=== PATIENT | male | born 1970 | race Caucasian/White ===

== ENCOUNTER 2017-05-08 12:40 | Observation (INO) | payer OTHER ==
[2017-05-08] MEDS ORDERED: Pantoprazole IV* 40 MG IV ONE ×2 (15:08→20:20)
[2017-05-08] MEDS ORDERED: NS 0.9% 1000 ML* 2,000 ML IV ONE (15:08)
[2017-05-08] MEDS ORDERED: Ondansetron INJ* 2 MG/ML VIAL IV ONE (15:08)
[2017-05-08 15:28] LABS: Hematocrit 39 % (42-52); Hemoglobin 13.5 g/dl (14.0-18.0); Mean Corpuscular HGB Conc 35 g/dl (31-36); Mean Corpuscular Hemoglobin 29 pg (27-31); Mean Corpuscular Volume 84 fL (80-94); Mean Platelet Volume 8 um3 (7.4-10.4); Red Blood Count 4.63 10^6/ul (4.0-5.4); Red Cell Distribution Width 13 % (10.5-15)
[2017-05-08 15:45] LABS: Albumin 4.6 g/dL (3.2-5.2); C Reactive Protein 1.6 mg/L (< 5.00); Calcium 9.8 mg/dL (8.6-10.3); EGFR African American 103.9 (>60); EGFR Non-African American 80.8 (>60); Potassium 3.8 mmol/L (3.5-5.0); Total Bilirubin 0.7 mg/dL (0.2-1.0); Total Protein 7.6 g/dL (6.4-8.9)
[2017-05-08] MEDS: Iohexol 300* (CONTRAST) 10 ML SDV IV ONE ×2 (17:58→17:59)
--- NOTE | 2017-05-08 18:07 | RAD ---
CLINICAL HISTORY: Abdominal pain, black stool, history of diverticulitis COMPARISON: June 18, 2014 TECHNIQUE: Multiple contiguous axial CT scans were obtained of the abdomen and pelvis after the administration of intravenous contrast. Coronal and sagittal multiplanar reformations are submitted for review. Oral contrast was administered. Delayed images were obtained through the abdomen and pelvis. FINDINGS: LUNG BASES: The lung bases are clear. LIVER: The liver is diffusely low in attenuation compared to the spleen. There are no focal hepatic parenchymal masses. BILE DUCTS: There is no intrahepatic or extrahepatic biliary dilatation. GALLBLADDER: The gallbladder is normal, without pericholecystic inflammatory change. PANCREAS: The pancreas is normal, without mass or ductal dilatation. SPLEEN: Normal in size and appearance. UPPER GI TRACT: Evaluation of the gastrointestinal tract is limited by incomplete gastric distention. The upper GI tract is unremarkable. SMALL BOWEL AND MESENTERY: The small bowel is normal in contour, course, and caliber. There is no obstruction or dilatation. COLON: There is diffuse mucosal thickening of the sigmoid colon. There is scattered diverticula of the colon. ADRENALS: Normal bilaterally. KIDNEYS: There has been interval development of a solid hypoenhancing lesion of the midpole of the right kidney best seen on axial image 36, measuring 2.2 x 2.2 x 1.7 cm in size. BLADDER: The bladder is smooth in contour. PELVIC ORGANS: The prostate gland is normal. The seminal vesicles are symmetric. AORTA: The aorta is normal. IVC: Unremarkable LYMPH NODES: There is no lymphadenopathy by size criteria. ABDOMINAL WALL: There is no evidence for abdominal wall hernia. BONES AND SOFT TISSUES: There are mild diffuse degenerative changes. OTHER: None IMPRESSION: 1. THERE HAS BEEN INTERVAL DEVELOPMENT OF A SOLID LESION OF THE CORTEX OF THE MIDPOLE OF THE RIGHT KIDNEY MEASURING UP TO 2.2 CM IN SIZE, CONCERNING FOR RENAL PARENCHYMAL NEOPLASM. RECOMMEND CONSIDERATION OF SURGICAL CONSULTATION 2. MUCOSAL THICKENING OF THE SIGMOID COLON SUGGESTIVE OF COLITIS. 3. SCATTERED DIVERTICULA OF THE COLON. 4. FATTY INFILTRATION OF LIVER.
[2017-05-08 18:10] LABS: Urine Bilirubin Negative (Negative); Urine Glucose Negative (Negative); Urine Nitrite Negative (Negative)
--- NOTE | 2017-05-08 20:33 | HP ---
H&P (Free Text) History and Physical: Mr Mosqueda is a 47M presenting with s/s consistent for upper GI hemorrhage with incidental finding of a renal mass suspicious for renal cell CA. He will be admitted for H&H trending, IVFs, transfusion (as indicated), and GI consultation. He will need outpatient work up of his renal mass upon discharge.
[2017-05-08] MEDS: Pantoprazole IV* 80 MG in NS 0.9% 250 ML* 250 ML IV SCH (20:51)
[2017-05-08] MEDS ORDERED: Acetaminophen TAB* 325 MG PO PRN (21:16)
[2017-05-08] MEDS ORDERED: Ondansetron INJ* 2 MG/ML VIAL IV PRN (21:16)
--- NOTE | 2017-05-08 21:45 | ED ---
Alyssa Neal Thomas, scribed for Ayaan Massey MD on 05/08/17 at 1509 . GI/ HPI - HPI Summary HPI Summary: The patient is a 47 year old male presenting to the ED complaining of black tarry stools for the last two days. He had half-solid, half-liquid stools, which worsened yesterday and today. He usually has 1 bowel movement a day. He complains of abdominal pain is all around the abdomen but concentrated in the epigastrium. The pain is rated 5/10. The pain is aggravated by bowel movements. Patient additionally complains of gas, lightheadedness, dry mouth, sore throat , and heartburn. Patient denies back pain. Pt does not take any medication. 2 years ago, the patient had an anal fissure. - History of Current Complaint Chief Complaint: EDGIBleed Time Seen by Provider: 05/08/17 14:50 Stated Complaint: BLACK STOOL Hx Obtained From: Patient Onset/Duration: Started Days Ago, Still Present Timing: Intermittent - each bowel movement Severity: Moderate Current Severity: Moderate Pain Intensity: 5 - /10 Associated Signs and Symptoms: Positive: Other: - abd pain, gas, lightheadedness , dry mouth, sore throat, and heartburn. Negative: Back Pain Aggravating Factor(s): Bowel Movement Alleviating Factor(s): Nothing - Allergy/Home Medications Allergies/Adverse Reactions: Allergies Allergy/AdvReac Type Severity Reaction Status Date / Time Amoxicillin Allergy Rash And Verified 05/08/17 14:58 Itching Ciprofloxacin [From Cipro] Allergy Hallucinati Verified 05/08/17 14:58 ons Metronidazole Allergy Hallucinati Verified 05/08/17 14:58 ons Home Medications: Home Medications NK [No Home Medications Reported] 05/08/17 [History Confirmed 05/08/17] PMH/Surg Hx/FS Hx/Imm Hx Previously Healthy: No Endocrine/Hematology History: Denies: Hx Diabetes Cardiovascular History: Denies: Hx Congestive Heart Failure GI History: Reports: Other GI Disorders - Anal Fissure Sensory History: Reports: Hx Contacts or Glasses Opthamlomology History: Reports: Hx Contacts or Glasses - Surgical History Surgery Procedure, Year, and Place: PT DENIES Infectious Disease History: No Infectious Disease History: Denies: Traveled Outside the [place] in Last 30 Days - Family History Known Family History: Positive: Cardiac Disease, Diabetes - Social History Alcohol Use: Rare Hx Substance Use: No Substance Use Type: Reports: None Hx Tobacco Use: Yes Smoking Status (MU): Former Smoker Type: Cigarettes Review of Systems Positive: Other - lightheadedness. Negative: Fever Positive: Chest Pain - heartburn Positive: Abdominal Pain, Other - Black stools, gas Negative: Other - back pain All Other Systems Reviewed And Are Negative: Yes Physical Exam - Summary Physical Exam Summary: General: well-appearing, no pain distress Skin: warm, color reflects adequate perfusion, dry Head: normal Eyes: EOMI, SY ENT: normal Neck: supple, nontender Respiratory: CTA, breath sounds present. Lungs clear. Cardiovascular: Tachycardic, regular rhythm Abdomen: soft, nontender Bowel: present, positive bowel sounds. Rectal: Stool was black and tarry. Musculoskeletal: normal, strength/ROM intact Neurological: normal, sensory/motor intact, A&O x3 Psychological: affect/mood appropriate Triage Information Reviewed: Yes Vital Signs On Initial Exam: Initial Vitals Temp Pulse Resp BP Pulse Ox 98.9 F 116 16 150/97 100 05/08/17 12:47 05/08/17 12:47 05/08/17 12:47 05/08/17 12:47 05/08/17 12:47 Vital Signs Reviewed: Yes - [place] Coma Scale Coma Scale Total: 15 Diagnostics - Vital Signs Vital Signs Temp Pulse Resp BP Pulse Ox 05/08/17 14:56 17 05/08/17 14:55 153/118 05/08/17 12:47 98.9 F 116 16 150/97 100 - Laboratory Lab Results: Lab Results 05/08/17 05/08/17 05/08/17 Range/Units 15:17 15:17 15:17 WBC (3.5-10.8) 10^3/ul RBC (4.0-5.4) 10^6/ul Hgb (14.0-18.0) g/dl Hct (42-52) % MCV (80-94) fL MCH (27-31) pg MCHC (31-36) g/dl RDW (10.5-15) % Plt Count (150-450) 10^3/ul MPV (7.4-10.4) um3 Neut % (Auto) (38-83) % Lymph % (Auto) (25-47) % [place] % (Auto) (1-9) % Eos % (Auto) (0-6) % Baso % (Auto) (0-2) % Absolute Neuts (auto) (1.5-7.7) 10^3/ul Absolute Lymphs (auto) (1.0-4.8) 10^3/ul Absolute Monos (auto) (0-0.8) 10^3/ul Absolute Eos (auto) (0-0.6) 10^3/ul Absolute Basos (auto) (0-0.2) 10^3/ul Absolute Nucleated RBC 10^3/ul Nucleated RBC % INR (Anticoag Therapy) 1.02 (0.77-1.02) APTT 31.0 (26.0-36.3) seconds Sodium 135 (133-145) mmol/L Potassium 3.8 (3.5-5.0) mmol/L Chloride 103 (101-111) mmol/L Carbon Dioxide 25 (22-32) mmol/L Anion Gap 7 (2-11) mmol/L BUN 15 (6-24) mg/dL Creatinine 1.00 (0.67-1.17) mg/dL Est GFR ( Amer) 103.9 (>60) Est GFR (Non-Af Amer) 80.8 (>60) BUN/Creatinine Ratio 15.0 (8-20) Glucose 109 H (70-100) mg/dL Lactic Acid (0.5-2.0) mmol/L Calcium 9.8 (8.6-10.3) mg/dL Total Bilirubin 0.70 (0.2-1.0) mg/dL AST 19 (13-39) U/L ALT 39 (7-52) U/L Alkaline Phosphatase 55 (34-104) U/L C-Reactive Protein 1.60 (< 5.00) mg/L Total Protein 7.6 (6.4-8.9) g/dL Albumin 4.6 (3.2-5.2) g/dL Globulin 3.0 (2-4) g/dL Albumin/Globulin Ratio 1.5 (1-3) Lipase 11 (11.0-82.0) U/L Urine Color Urine Appearance Urine pH (5-9) Ur Specific [place] (1.010-1.030) Urine Protein (Negative) Urine Ketones (Negative) Urine Blood (Negative) Urine Nitrate (Negative) Urine Bilirubin (Negative) Urine Urobilinogen (Negative) Ur Leukocyte Esterase (Negative) Urine Glucose (Negative) Blood Type O Negative Antibody Screen Negative 05/08/17 05/08/17 05/08/17 Range/Units 15:17 15:17 17:53 WBC 9.0 (3.5-10.8) 10^3/ul RBC 4.63 (4.0-5.4) 10^6/ul Hgb 13.5 L (14.0-18.0) g/dl Hct 39 L (42-52) % MCV 84 (80-94) fL MCH 29 (27-31) pg MCHC 35 (31-36) g/dl RDW 13 (10.5-15) % Plt Count 254 (150-450) 10^3/ul MPV 8 (7.4-10.4) um3 Neut % (Auto) 68.0 (38-83) % Lymph % (Auto) 25.9 (25-47) % [place] % (Auto) 5.1 (1-9) % Eos % (Auto) 0.2 (0-6) % Baso % (Auto) 0.8 (0-2) % Absolute Neuts (auto) 6.1 (1.5-7.7) 10^3/ul Absolute Lymphs (auto) 2.3 (1.0-4.8) 10^3/ul Absolute Monos (auto) 0.5 (0-0.8) 10^3/ul Absolute Eos (auto) 0 (0-0.6) 10^3/ul Absolute Basos (auto) 0.1 (0-0.2) 10^3/ul Absolute Nucleated RBC 0 10^3/ul Nucleated RBC % 0 INR (Anticoag Therapy) (0.77-1.02) APTT (26.0-36.3) seconds Sodium (133-145) mmol/L Potassium (3.5-5.0) mmol/L Chloride (101-111) mmol/L Carbon Dioxide (22-32) mmol/L Anion Gap (2-11) mmol/L BUN (6-24) mg/dL Creatinine (0.67-1.17) mg/dL Est GFR ( Amer) (>60) Est GFR (Non-Af Amer) (>60) BUN/Creatinine Ratio (8-20) Glucose (70-100) mg/dL Lactic Acid 0.9 (0.5-2.0) mmol/L Calcium (8.6-10.3) mg/dL Total Bilirubin (0.2-1.0) mg/dL AST (13-39) U/L ALT (7-52) U/L Alkaline Phosphatase (34-104) U/L C-Reactive Protein (< 5.00) mg/L Total Protein (6.4-8.9) g/dL Albumin (3.2-5.2) g/dL Globulin (2-4) g/dL Albumin/Globulin Ratio (1-3) Lipase (11.0-82.0) U/L Urine Color Straw Urine Appearance Clear Urine pH 5.0 (5-9) Ur Specific [place] 1.004 L (1.010-1.030) Urine Protein Negative (Negative) Urine Ketones Trace H (Negative) Urine Blood Negative (Negative) Urine Nitrate Negative (Negative) Urine Bilirubin Negative (Negative) Urine Urobilinogen Negative (Negative) Ur Leukocyte Esterase Negative (Negative) Urine Glucose Negative (Negative) Blood Type Antibody Screen Result Diagrams: 05/08/17 15:17 05/08/17 15:17 Lab Statement: Any lab studies that have been ordered have been reviewed, and results considered in the medical decision making process. - CT Abdomen/Pelvis CT Interpretation: Positive (See Comments) - IMPRESSION: 1. THERE HAS BEEN INTERVAL DEVELOPMENT OF A SOLID LESION OF THE CORTEX OF THE MIDPOLE OF THE RIGHT KIDNEY MEASURING UP TO 2.2 CM IN SIZE, CONCERNING FOR RENAL PARENCHYMAL NEOPLASM. RECOMMEND CONSIDERATION OF SURGICAL CONSULTATION 2. MUCOSAL THICKENING OF THE SIGMOID COLON SUGGESTIVE OF COLITIS. 3. SCATTERED DIVERTICULA OF THE COLON. 4. FATTY INFILTRATION OF LIVER. Dr. Massey has reviewed this impression. CT Interpretation Completed By: Radiologist - EKG 1523 Cardiac Rate: Tachycardia EKG Rhythm: Sinus Rhythm - 106 BPM Ectopy: None EKG Interpretation: Borderline T-abnormality in the inferior leads. GIGU Course/Dx - Course Course Of Treatment: DISCUSSED RESULTS WITH PATIENT. DISCUSSED WITH KIDNEY TUMOR WITH DR PELAYO; PATIENT WILL FOLLOW UP WITH DR PELAYO AN OUT PATIENT FOR THE KIDNEY TUMOR. DISCUSSED WITH DR DEL VALLE, GI. ADMIT HOSPITALIST. NO CRITICAL CARE TIME. Assessment/Plan: Medications reviewed. Blood pressure noted. Allergies noted. - Diagnoses Provider Diagnoses: GI bleed, Kidney tumor, Colitis, Abdominal pain - Physician Notifications Discussed Care Of Patient With: Juan Pelayo Time Discussed With Above Provider: 19:11 Instructed by Provider To: Other - I consulted with Dr. Pelayo, oncology, who says the patient can follow up his office. I also consulted with Dr. Del Valle, gastroenterology, regarding patient care. He would like the patient to be admitted. I consulted with Dr. Linder, welfare adviser, who admits the patient. Discharge - Discharge Plan Condition: Fair Disposition: ADMITTED TO [facility] The documentation as recorded by the Alyssa perez Thomas accurately reflects the service I personally performed and the decisions made by me, Ayaan Massey MD.
[2017-05-08] MEDS: NS 0.9% 1000 ML* 1,000 ML IV SCH (23:13)
[2017-05-08 23:52] LABS: Hematocrit 31 % (42-52); Hemoglobin 10.6 g/dl (14.0-18.0)
--- NOTE | 2017-05-09 00:41 | HP ---
ADDENDUM NOW INCLUDED ON THIS REPORT CC: Dr. Dl Blanco* MEDICINE HISTORY AND PHYSICAL: DATE OF ADMISSION: 05/08/17 PROVIDER: Felicia Aragon NP ATTENDING PHYSICIAN: Dr. Regulo Linder * (as dictated by Felicia Aragon NP ) CONSULTING PHYSICIAN: Dr. Alden Bansal, Gastroenterology. PRIMARY CARE PROVIDER: Dr. Dl Blanco. CHIEF COMPLAINT: Black tarry stools. HISTORY OF PRESENT ILLNESS: This is a 47-year-old male patient, who came to the ER today for evaluation of black tarry stools, lightheadedness, and decreased appetite x2 days. Mr. Mosqueda states he was in his usual state of health when on Tuesday he noticed that he was having black tarry stools, he states that they were half liquid and resembling diarrhea. He also had some epigastric pain that accompanied the stools. Over the course of Tuesday, Tuesday, and today into the Tuesday, the amount of stool he had with each bowel movement became smaller and was notably more tarry. He reports that he had severe heartburn on Tuesday and Tuesday beyond his normal heartburn and that he had episodes of sweating and nausea. This did improve over the course of the weekend, but the episode of epigastric pain he had on Tuesday was so severe where he almost passed out, he states. He does endorse that he has chronic abdominal pain secondary to IBS and states that he typically has some gas pain and had evaluation for this a few years ago with [facility]. He also endorses a history of bad acid reflux and heartburn, but worse this weekend. He denies taking medications stating he does not like to take pills, he cannot swallow pills, so he is not taking any NSAIDs or aspirin. He denies any recent falls or trauma to the abdomen. He denies any alcohol use. He denies any previous history of GI bleed, although he does state that his sister reported that he had a similar episode when he was 12 years old, but he does not recall this. The patient again endorses subjective fevers via hot flashes and sweating, on Tuesday, he does endorse some dizziness that has been intermittent as well as midsternal heartburn. He denies chest pain, back pain, edema. He denies any shortness of breath or cough. He denies any other episodes of nausea or vomiting other than nausea here on Tuesday. He denies any hematochezia or hematemesis. He denies hematuria, flank pain, dysuria. He denies any focal weakness, rashes, or any other concerns. PAST MEDICAL HISTORY: Includes irritable bowel syndrome with chronic abdominal pain and history of anxiety. HOME MEDICATIONS: The patient denies. ALLERGIES: AMOXICILLIN, CIPROFLOXACIN, METRONIDAZOLE. FAMILY HISTORY: He reports his father had a heart attack and maternal grandfather who had diabetes. He does not know of any cancer in his family. SOCIAL HISTORY: He reports being a former smoker having quit a few years ago. He states that he thinks he is allergic to alcohol, does not drink, secondary to breaking out into hives. He used to use a lot of marijuana back in his 30s, but states that he has not used it for several years. 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 He is . His , Raiza Castro, is his surrogate decision maker. REVIEW OF SYSTEMS: A 14-point review of systems was completed. All pertinent positives are listed in the HPI, all others not mentioned were negative. PHYSICAL EXAMINATION VITAL SIGNS: Temperature 98.9, heart rate 104, respiratory rate 20, blood pressure 139/93, O2 saturation 98% on room air. HEENT: Head is atraumatic and normocephalic. Face is symmetrical. Pupils are equal, round, and reactive to light. Extraocular movements are intact. Oral mucosa appears moist. There is no oropharyngeal erythema or exudate. NECK: Supple. No lymphadenopathy appreciated. RESPIRATORY: Lungs are clear to auscultation. There is no accessory muscle use. CARDIAC: S1 and S2, heart sounds, regular rate and rhythm. No murmurs, rubs, or gallops. There is no peripheral edema. The patient has 2+ distal pulses throughout. ABDOMEN: Soft, nontender, nondistended. Bowel sounds are present times all 4 quadrants. There is no hepatomegaly. There is no splenomegaly. There is no rebound, tenderness, or guarding. No CVA tenderness. MUSCULOSKELETAL: No clubbing or cyanosis. The patient has full range of motion. NEURO: Cranial nerves II through XII are grossly intact. The patient moves all extremities. Sensation was intact to light touch to the lower extremities. PSYCH: He is alert and oriented x3. Affect is appropriate. The patient does have some mild anxiety. SKIN: Limited assessment appears grossly intact anteriorly. Skin is warm and dry. DIAGNOSTIC STUDIES/LAB DATA: CBC: WBC 9.0, hemoglobin 13.5, hematocrit 39, platelet count 254. INR 1.02, PTT 31.0. Chemistry: Sodium 135, potassium 3.8 , chloride 103, carbon dioxide 25, BUN 15, creatinine 1.00, glucose 109, lactic acid 0.9, calcium 9.8. Total bilirubin 0.7, AST 19, ALT 39, alk phos 55. CRP 1.6. Albumin 4.6, lipase 11. Urinalysis shows trace ketones. The patient's stool occult positive. EKG shows sinus tachycardia with abnormal R-wave progression, rate of 106. No significant ST or T wave changes to indicate acute ischemia. CT of the abdomen and pelvis, impression: 1. There has been interval development of a solid lesion on the cortex of the mid pole of the right kidney measuring up to 2.2 cm in size, concerning for renal parenchymal neoplasm. Recommend consideration of surgical consultation. 2. Mucosal thickening of the sigmoid colon suggestive of colitis. 3. Scattered diverticula of the colon. 4. Fatty infiltration of liver. Old medical records were reviewed. ASSESSMENT AND PLAN: This is a 47-year-old male patient who presents today with concern for melena and suspicion for an upper gastrointestinal bleed. He will be admitted to the medicine floor with telemetry monitoring. Plan is as follows: 1. Melena with suspected upper gastrointestinal bleed. The patient's case was reviewed with Dr. Bansal by the ER physician and myself. There is plan to have the patient added on for an endoscopy tomorrow. Per Dr. Bansal, the patient should be allowed to have sips of water, but should otherwise be n.p.o. with the hope that he can be added on for his endoscopy. He has already been initiated on Protonix drip here in the ER, which we will continue. Continue IV hydration. The patient will have serial H and Hs checked to ensure that his levels remain stable. Orthostatics were done in the ER, are negative for orthostasis. Continue to maintain IV access and monitor the patient for hemodynamic stability. 2. Concern for lesion on right kidney. Dr. Massey reviewed this with Dr. Huizar of Hematology, who recommended the patient to be scheduled with [facility] as an outpatient so that he can have an oncology workup for the concerning lesion. The patient should be referred to Oncology at [facility] prior to discharge, so this can be arranged. 3. History of irritable bowel syndrome. The patient is not on any chronic medications for this. Continue supportive care. 4. History of anxiety. The patient does not take anything for anxiety here, although I have ordered to him p.r.n. lorazepam that he may have to help with anxiety prior to testing. 5. FEN. The patient is ordered IV fluids and may have sips of water. 6. DVT prophylaxis. The patient is ordered SCDs, by the way no chemoprophylaxis secondary to concern for hemorrhage. 7. Code status. He is a full code. TIME SPENT: Time spent on this admission was approximately 60 minutes with more than half of that time spent [id number] with the patient obtaining history and physical, performing the physical examination, and reviewing the plan of care. Plan of care was also reviewed with my attending, Dr. Linder , who is in agreement. FELICIA ARAGON NP ADDENDUM: ASSESSMENT AND PLAN: Please note that the patient also has some notably elevated blood pressures. In discussion with the patient and review of records found in [facility] from his previous primary care provider, Dr. Clark, the patient was diagnosed with hypertension and was maintained on amlodipine, but he stopped on his own secondary to having normal blood pressures. It is unclear if the patient's blood pressures are elevated simply because he is anxious, but I suspect that there is still concern for hypertension in this patient as he did arrive with 150/97 blood pressure, has been trending in the 150s into 170s for the first couple of hours. I will order amlodipine to restart with hold parameters and blood pressures can continue to be trended to ensure that he does not require reinitiation of his medication as an outpatient. FELICIA ARAGON NP [id number]/CPS #: [id number]/CPS #: [id number] [facility]
[2017-05-09] MEDS: LORazepam INJ* 2 MG/ML 1 ML VIAL IV PUSH PRN ×2 (01:14→08:37)
--- NOTE | 2017-05-09 01:14 | HP ---
HISTORY AND PHYSICAL:* ADDENDUM: ASSESSMENT AND PLAN: Please note that the patient also has some notably elevated blood pressures. In discussion with the patient and review of records found in [facility] from his previous primary care provider, Dr. Clark, the patient was diagnosed with hypertension and was maintained on amlodipine, but he stopped on his own secondary to having normal blood pressures. It is unclear if the patient's blood pressures are elevated simply because he is anxious, but I suspect that there is still concern for hypertension in this patient as he did arrive with 150/97 blood pressure, has been trending in the 150s into 170s for the first couple of hours. I will order amlodipine to restart with hold parameters and blood pressures can continue to be trended to ensure that he does not require reinitiation of his medication as an outpatient. FELICIA ARAGON, ROSY [id number]/CPS #: [id number] [facility]
[2017-05-09 07:04] LABS: Hematocrit 29 % (42-52); Mean Corpuscular HGB Conc 34 g/dl (31-36); Mean Corpuscular Hemoglobin 29 pg (27-31); Mean Corpuscular Volume 86 fL (80-94); Mean Platelet Volume 8 um3 (7.4-10.4); Red Blood Count 3.41 10^6/ul (4.0-5.4); Red Cell Distribution Width 13 % (10.5-15)
[2017-05-09 07:18] LABS: BUN/Creatinine Ratio 24.5 (8-20); Calcium 8.4 mg/dL (8.6-10.3); EGFR African American 111.6 (>60); EGFR Non-African American 86.8 (>60)
[2017-05-09] MEDS: Pantoprazole IV* 80 MG in NS 0.9% 250 ML* 250 ML IV SCH (08:19)
[2017-05-09] MEDS: amLODIPine TAB* 5 MG PO SCH ×2 (08:20→08:22)
[2017-05-09] MEDS: NS 0.9% 1000 ML* 1,000 ML IV SCH ×2 (08:25→22:31)
[2017-05-09 10:17] LABS: Hematocrit 29 % (42-52); Hemoglobin 9.9 g/dl (14.0-18.0)
--- NOTE | 2017-05-09 11:46 | PN ---
Subjective Date of Service: 05/09/17 Interval History: Patient seen and examined at bedside. Denies fever, chills, lightheadedness or dizziness, shortness of breath, chest discomfort, N/V/D. Pt states that he continues to have black stools, with his last one this AM. Pt denies taking NSAIDS. Reports indigestion over the last few days, that has now resolved. Tele: Sinus tach, rate 80-100's Family History: Unchanged from Admission Social History: Unchanged from Admission Past Medical History: Unchanged from Admission Objective Active Medications: Acetaminophen (Tylenol Tab*) 650 mg PO Q4H PRN Reason: FEVER/PAIN Amlodipine Besylate (Norvasc Tab*) 5 mg PO DAILY EZRA Pantoprazole Sodium 80 mg/ (Sodium Chloride) 250 mls @ 25 mls/hr IV Q10H EZRA Sodium Chloride (Ns 0.9% 1000 Ml*) 1,000 mls @ 100 mls/hr IV PER RATE EZRA Lorazepam (Ativan Inj*) 0.5 mg IV PUSH Q6H PRN Reason: ANXIETY Ondansetron HCl (Zofran Inj*) 4 mg IV Q6H PRN Reason: NAUSEA/VOMITING Vital Signs - 8 hr 05/09/17 05/09/17 05/09/17 05:41 07:10 08:00 Temperature 98.3 F Pulse Rate 87 Respiratory 16 18 18 Rate Blood Pressure 126/74 (mmHg) O2 Sat by Pulse 99 Oximetry 05/09/17 05/09/17 05/09/17 08:03 08:37 11:09 Temperature 98.1 F Pulse Rate 89 Respiratory 18 16 18 Rate Blood Pressure 127/76 (mmHg) O2 Sat by Pulse 100 Oximetry Oxygen Devices in Use Now: None Appearance: NAD, laying in bed Respiratory: Symmetrical Chest Expansion and Respiratory Effort, Clear to Auscultation Cardiovascular: NL Sounds; No Murmurs; No JVD, RRR Abdominal: NL Sounds; No Tenderness; No Distention Extremities: No Edema Skin: No Rash or Ulcers Neurological: Alert and Oriented x 3, NL Muscle Strength and Tone Lines/Tubes/Other Access: Clean, Dry and Intact Peripheral IV - site benign Nutrition: Taking PO's Result Diagrams: 05/09/17 15:46 05/09/17 06:44 Additional Lab and Data: Assess/Plan/Problems-Billing Assessment: Mr. Mosqueda is a 47 yo male with PMH significant for IBS, chronic pain and anxiety who presented to the emergency room with complaints of melena. - Patient Problems (1) GI bleed Code(s): K92.2 - GASTROINTESTINAL HEMORRHAGE, UNSPECIFIED SNOMED Code(s): 50533777 Comment: - Suspect upper GI bleed - Plan for EGD later today - Continue to trend HH and protonix drip (2) Lesion of right [place] kidney Code(s): N28.9 - DISORDER OF KIDNEY AND URETER, UNSPECIFIED SNOMED Code(s): 61821906 Comment: - Follow up outpatient with [facility] (3) Anxiety Code(s): F41.9 - ANXIETY DISORDER, UNSPECIFIED SNOMED Code(s): 90276040 Comment: - Continue PRN lorazepam (4) DVT prophylaxis Code(s): HPI2319 - SNOMED Code(s): 999541081 Comment: - SCDs, chemical DVT prophylaxsis held in the setting of a GI bleed (5) Full code status Code(s): Z78.9 - OTHER SPECIFIED HEALTH STATUS SNOMED Code(s): 339626852 Status and Disposition: Inpatient to OBV. Discharge to home when medically stable.
[2017-05-09] MEDS ORDERED: Meperidine SYRINGE* 50 MG/ML ONE ×2 (14:00→14:01)
[2017-05-09] MEDS ORDERED: Midazolam* 1 MG/ML 10 ML VIAL (10 MG) ONE ×2 (14:00→14:02)
[2017-05-09 15:56] LABS: Hematocrit 29 % (42-52); Hemoglobin 9.9 g/dl (14.0-18.0)
[2017-05-09] MEDS: Lansoprazole susp Kit 3 MG/ML (15 MG = 5 ML) PO SCH (20:46)
[2017-05-10 06:00] LABS: Hematocrit 27 % (42-52); Hemoglobin 9.1 g/dl (14.0-18.0); Mean Corpuscular HGB Conc 35 g/dl (31-36); Mean Corpuscular Hemoglobin 30 pg (27-31); Mean Corpuscular Volume 86 fL (80-94); Mean Platelet Volume 8 um3 (7.4-10.4); Red Blood Count 3.09 10^6/ul (4.0-5.4); Red Cell Distribution Width 14 % (10.5-15)
[2017-05-10] MEDS: amLODIPine TAB* 5 MG PO SCH ×2 (09:17→09:24)
[2017-05-10] MEDS: Lansoprazole susp Kit 3 MG/ML (15 MG = 5 ML) PO SCH (09:17)
--- NOTE | 2017-05-10 11:44 | PRO ---
CC: Dr. Blanco * DATE OF PROCEDURE: 05/09/2017. PROCEDURE PERFORMED: EGD. INDICATION: Melena. REFERRING PHYSICIAN: Dr. Blanco. MEDICATIONS GIVEN: 100 mg IV Demerol and 16 mg IV Versed. PROCEDURE: After the EGD procedure, including the risks, benefits, and alternatives, not limited to perforation, surgery, and/or were explained to Mr. Mosqueda, written consent was then obtained. IV medication was given and a bite- block was placed between the teeth. An Olympus gastroscope was then inserted into the patient's mouth, advanced down the esophagus, into the stomach , and into the distal duodenum. In the esophagus at the GE junction, the Z- line was intact. No erosive esophagitis, stricture, or ring was seen. The scope was advanced through a widely patent GE junction and into the body of the stomach. Retroflex and forward views were unremarkable. The scope was advanced through a widely pylorus and into the duodenal bulb, which contained moderate to severe duodenitis. No bleeding was seen. Biopsies were obtained for H. pylori from the gastric antrum. The scope was advanced to the distal duodenum which was unremarkable. The scope was then withdrawn from the patient. He tolerated the procedure well and was returned to the recovery room in stable condition. IMPRESSION: 1. Complete upper endoscopy into the distal duodenum with biopsies. 2. Duodenitis. 3. Biopsies for H. pylori. 4. I will follow-up on all the biopsies and report back to the patient at that time. [id number]/[facility] #: [id number] MTDD
--- NOTE | 2017-05-10 12:17 | PN ---
Subjective Date of Service: 05/10/17 Interval History: Patient seen and examined at bedside. Denies fever, chills, dizziness, shortness of breath, chest discomfort, N/V/D. Pt states that he was lightheaded while laying down earlier. Continues to have dark stools, with a small about of brown this Am. Tele: Sinus rhythm, rate 80-100s. Family History: Unchanged from Admission Social History: Unchanged from Admission Past Medical History: Unchanged from Admission Objective Active Medications: Acetaminophen (Tylenol Tab*) 650 mg PO Q4H PRN Reason: FEVER/PAIN Amlodipine Besylate (Norvasc Tab*) 5 mg PO DAILY EZRA Lansoprazole (Lansoprazole Susp Kit) 15 mg PO BID EZRA Lorazepam (Ativan Inj*) 0.5 mg IV PUSH Q6H PRN Reason: ANXIETY Ondansetron HCl (Zofran Inj*) 4 mg IV Q6H PRN Reason: NAUSEA/VOMITING Vital Signs - 8 hr 05/10/17 05/10/17 07:40 08:00 Temperature 97.4 F Pulse Rate 92 Respiratory 16 16 Rate Blood Pressure 120/71 (mmHg) O2 Sat by Pulse 100 Oximetry Oxygen Devices in Use Now: None Appearance: NAD, laying in bed Ears/Nose/Mouth/Throat: Mucous Membranes Moist Respiratory: Symmetrical Chest Expansion and Respiratory Effort, Clear to Auscultation Cardiovascular: NL Sounds; No Murmurs; No JVD, RRR Abdominal: NL Sounds; No Tenderness; No Distention Extremities: No Edema Skin: No Rash or Ulcers Neurological: Alert and Oriented x 3, NL Muscle Strength and Tone Lines/Tubes/Other Access: Clean, Dry and Intact Peripheral IV - site benign Nutrition: Taking PO's Result Diagrams: 05/10/17 05:40 05/09/17 06:44 Additional Lab and Data: Microbiology and Other Data: Microbiology 05/09/17 14:47 CLOtest - Final Gastric Antrum Assess/Plan/Problems-Billing Assessment: Mr. Mosqueda is a 47 yo male with PMH significant for IBS, chronic pain and anxiety who presented to the emergency room with complaints of melena. - Patient Problems (1) GI bleed Code(s): K92.2 - GASTROINTESTINAL HEMORRHAGE, UNSPECIFIED SNOMED Code(s): 81374250 Comment: - Suspect upper GI bleed - EDG showed duodenitis - HH continues to trend down slightly - Continue Prevacid 15 mg BID - Will recheck HH now and if stable will discharge to home today (2) Lesion of right [place] kidney Code(s): N28.9 - DISORDER OF KIDNEY AND URETER, UNSPECIFIED SNOMED Code(s): 13664695 Comment: - Follow up outpatient with [facility] (3) HTN (hypertension) Code(s): I10 - ESSENTIAL (PRIMARY) HYPERTENSION SNOMED Code(s): 96680285 Comment: - Pt was hypertensive in ED - Continue to monitor (4) Anxiety Code(s): F41.9 - ANXIETY DISORDER, UNSPECIFIED SNOMED Code(s): 18307959 Comment: - Continue PRN lorazepam (5) DVT prophylaxis Code(s): OBG6436 - SNOMED Code(s): 592470643 Comment: - SCDs, chemical DVT prophylaxsis held in the setting of a GI bleed (6) Full code status Code(s): Z78.9 - OTHER SPECIFIED HEALTH STATUS SNOMED Code(s): 028779795 Status and Disposition: OBV. Discharge to home when medically stable, possibly later today.
[2017-05-10 12:34] LABS: Hematocrit 30 % (42-52); Hemoglobin 10.4 g/dl (14.0-18.0)
[2017-05-10 13:41] VITALS: BP 149/85
--- NOTE | 2017-05-11 05:11 | DS ---
CC: Dr. Clark * DISCHARGE SUMMARY: DATE OF ADMISSION: 05/08/17 DATE OF DISCHARGE: 05/10/17 ATTENDING PHYSICIAN: Dr. Mauri Alejandra * (dictated by Marilia Geiger NP). PRIMARY CARE PROVIDER: Dr. Han Clark. PRIMARY DIAGNOSES: 1. Upper GI bleed, suspect secondary to duodenitis. 2. Incidental finding of a 2.2-cm right solid renal lesion. 3. Hypertension. SECONDARY DIAGNOSES: 1. Anxiety. 2. Irritable bowel syndrome. 3. Chronic abdominal pain. CONSULTATIONS WHILE IN THE HOSPITAL: Dr. Baron Banda and Dr. Alden Bansal with Gastroenterology. PROCEDURES WHILE IN THE HOSPITAL: Status post complete upper endoscopy on 05/[address] Baron Banda. Impression: Complete upper endoscopy into the distal duodenum with biopsies, duodenitis. Biopsies for H. pylori. STUDIES WHILE IN THE HOSPITAL: Abdomen and pelvis CT scan from 05/08/17. Radiologist's impression: There has been interval development of a solid lesion of the cortex of the middle pole of the right kidney measuring up to 2.2 cm in size concerning for renal parenchymal neoplasm. Recommend consideration of surgical consultation. Mucosal thickening of the sigmoid colon suggestive of colitis. Scattered diverticula of the colon. Fatty infiltration of the liver. DISCHARGE MEDICATIONS: New home medication: Omeprazole 40 mg oral daily. HISTORY OF PRESENT ILLNESS/HOSPITAL COURSE: Mr. Mosqueda is a 47-year-old male with past medical history significant for IBS, anxiety and chronic abdominal pain, who presented to the emergency room with complaints of black tarry stools , lightheadedness, and decreased appetite for approximately 2 days. Mr. Mosqueda stated he had been in his usual state of health when on Tuesday prior to his presentation he noticed he was having black tarry stools. He stated they were half liquid and resembling diarrhea. He also reported epigastric pain that accompanied the stools. Over the course of the weekend, the amount of stools with each bowel movement became smaller and more notably tarry. The patient had severe heartburn on Tuesday and Tuesday beyond his normal heartburn and episodes of diaphoresis and nausea. He felt as though he had started to improve , but did have an episode of pain so severe on Tuesday that he almost passed out. He endorses chronic abdominal pain secondary to his IBS, typically some gas pain and had been evaluated several years ago by Gastroenterology. The patient denies taking any medications such as NSAIDs, many were specifically listed including aspirin, naproxen, Aleve, Advil, ibuprofen. He denies taking any medications as he does not like taking pills. He denied any recent injury or trauma to his abdomen. Denied alcohol use. He denied any previous history of GI bleeding. Based on all of these, the patient presented to the emergency room for further evaluation of his symptoms. While in the emergency room, the patient had an EKG showing abnormal R-wave progression, but no signs of acute ischemia. He had a CT of abdomen showing incidental finding of a 2.2-cm right renal lesion, mucosal thickening of the sigmoid colon suggestive of colitis, scattered diverticula of the colon, fatty liver. He had labs, they were fairly unremarkable. He was received IV Protonix and started on the Protonix drip and the hospitalists were asked to evaluate the patient for admission. While in the hospital, the patient's H and H was trended. He did initially drop from 13.5 for his hemoglobin down to 9.1 this morning. His hematocrit dropped from 39 on admission down to 27 this morning. Rechecked his labs at noon today and they were 10.4 and 30 for his hemoglobin and hematocrit respectively. The patient underwent complete EGD yesterday on May 09 showing duodenitis. He was transitioned from IV PPI to oral PPI. The patient was doing well. He intermittently was anxious and had some tachycardia I suspect secondary to his anxiety. The patient is tolerating a regular diet. While in the emergency room, the patient was initially quite hypertensive. He was initially started on amlodipine, but never took any. His blood pressure has normalized. I suspect he was hypertensive in the emergency room due to his anxiety. He had orthostatic vitals and was not found to be orthostatic. He was able to ambulate without difficulties. Reported some improvement in the tarriness in coloring of his stool and was passing small amounts of brown stool with his dark colored stools. It was felt the patient was stable for discharge to home today. Mr. Mosqueda is stable for discharge to home today. Vital signs are as follows: Temperature 99.9, heart rate 102, respiratory rate 16, O2 sat 97% on room air, blood pressure 132/91. DISCHARGE PLAN: Mr. Panda will be discharged to home. Activity as tolerated. He will be on a regular diet. The patient has been started on omeprazole 40 mg oral daily. He has been instructed if he is unable to swallow the capsules that he may open them up and placed them in applesauce. He has a followup appointment with Gastroenterology for his GI bleed on May 27 at 1:30 p.m. He is to follow up with his primary care provider, Dr. Clark, on May 17 at 2:50 p.m. He has an appointment with Dr. Huizar on May 13 at 4 o' clock for further outpatient workup of his incidental right renal lesion finding. The patient has been asked to return to the emergency room for any chest pain or shortness of breath. This is a summarized report of a complex medical history and hospital stay. For further details, please see the entire medical record. Reviewed by CELINA WEBBER 05/11/17 2044 [id number]/[facility] #: [id number] MARÍA
--- NOTE | 2017-05-11 09:46 | CONS ---
CC: Dr. Linder* CONSULTATION REPORT: DATE OF CONSULT: 05/09/17 REQUESTING PHYSICIAN: Dr. Linder. NARRATIVE: Mr. Mosqueda is a very pleasant 47-year-old gentleman who states that he has had black stools over the past couple of days. He does have epigastric pain, no nausea, no vomiting, no unintentional weight loss. He did not use any nonsteroidals. No history of bleeding in the past. His stools have been very loose. He states that his heartburn has increased fairly dramatically over the past couple of weeks. No dysphagia, no odynophagia. He again denies any nonsteroidal use. No history of GI bleeding in the past. PAST MEDICAL HISTORY: Significant for irritable bowel syndrome. This pain feels different than his typical IBS. He also has a history of anxiety. MEDICATIONS: Medications at home none. ALLERGIES: FLAGYL, CIPRO, and AMOXICILLIN. FAMILY HISTORY: Coronary artery disease, diabetes. SOCIAL HISTORY: He quit smoking a few years ago. He does not drink alcohol as it causes symptoms. He is an author. REVIEW OF SYSTEMS: Twelve systems were reviewed, other than mentioned in the HPI were unremarkable. PHYSICAL EXAM: Temperature is 97.8, blood pressure is 131/76, pulse is 82, respiratory rate of 20, O2 sat is 99%. General: Well appearing male, in no apparent distress, alert, oriented, pleasant, fluent. HEENT: Mucous membranes are moist without lesions, ulcers, or exudate. Neck: Supple. Trachea is midline. Head: Normocephalic, atraumatic. Heart: Regular rate and rhythm. Lungs: Clear to auscultation. Abdomen: Positive bowel sounds, soft, nontender , non-distended. No hepatosplenomegaly, masses, rebound, or guarding. Skin: Warm and dry. Lymph: No supraclavicular or cervical lymphadenopathy. Musculoskeletal: No CVA or spinal tenderness to palpation. Psych: Normal affect. Neuro: No asterixes. DIAGNOSTIC STUDIES/LAB DATA: Of note, his hemoglobin is 9.9, down from 10.6. INR 1.02. BUN 15, creatinine 1. ASSESSMENT AND PLAN: This is a pleasant 47-year-old gentleman with melena. We do need to perform an upper endoscopy for evaluation of peptic ulcer disease and gastritis. We discussed about the possible etiology. He is understanding and agreeable. I will make arrangement for his EGD shortly. [id number]/[facility] #: [id number] MARÍA
== END 2017-05-10 15:00 | disposition home or self-care (01) ==
LOC: ED 12:40 → INTOOBSV 20:29 → MED 20:29
PROVIDERS: ADMIT Hospitalist; ATTEND Internal Medicine
DX: K29.80 Duodenitis without bleeding (principal); N28.9 Disorder of kidney and ureter, unspecified; K92.2 Gastrointestinal hemorrhage, unspecified; I10 Essential (primary) hypertension; F41.9 Anxiety disorder, unspecified; K58.9 Irritable bowel syndrome, unspecified; G89.29 Other chronic pain; R10.9 Unspecified abdominal pain; Z88.1 Allergy status to other antibiotic agents; Z87.891 Personal history of nicotine dependence; K76.0 Fatty (change of) liver, not elsewhere classified
CPT/HCPCS: 36415; 74177; 80048; 80053; 81003; 82270; 82941; 83605; 83690; 85014; 85018; 85025; 85610; 85730; 86140; 86850; 86900; 86901; 87077; 93005; 96374; 96375; 96376; 99156; 99157; 99284; A9270-GY; G0378; J2060; J2175; J2250; J2405; Q9967

== ENCOUNTER 2017-09-05 08:37 | Emergency (ER) | payer OTHER ==
[2017-09-05] MEDS ORDERED: NS 0.9% 1000 ML* 2,000 ML IV ONE (09:20)
[2017-09-05] MEDS ORDERED: Pantoprazole IV* 40 MG IV ONE (09:22)
[2017-09-05 09:52] LABS: ABS Basophils 0.1 10^3/ul (0-0.2); ABS Eosinophils 0.2 10^3/ul (0-0.6); ABS Lymphocytes 1.3 10^3/ul (1.0-4.8); ABS Monocytes 0.4 10^3/ul (0-0.8); ABS Neutrophils 3.3 10^3/ul (1.5-7.7); ABS Nucleated RBC 0 10^3/ul; Eosinophil % 4.5 % (0-6); Hematocrit 37 % (42-52); Hemoglobin 12.5 g/dl (14.0-18.0); Lymphocyte % 24.3 % (25-47); Mean Corpuscular HGB Conc 34 g/dl (31-36); Mean Corpuscular Hemoglobin 27 pg (27-31); Mean Corpuscular Volume 80 fL (80-94); Mean Platelet Volume 7.9 um3 (7.4-10.4); Nucleated Red Blood Cells % 0; Platelet Count 278 10^3/ul (150-450); Red Blood Count 4.68 10^6/ul (4.0-5.4); Red Cell Distribution Width 14 % (10.5-15); White Blood Count 5.3 10^3/ul (3.5-10.8)
[2017-09-05 09:57] LABS: Urine Appearance Clear; Urine Blood 2+ (Negative); Urine Color Straw; Urine Ketones Negative (Negative); Urine Protein Negative (Negative); Urine Specific Gravity 1.005 (1.010-1.030); Urine Urobilinogen Negative (Negative)
[2017-09-05 10:01] LABS: INR 1.02 (0.77-1.02)
[2017-09-05 10:06] LABS: EGFR Non-African American 77.2 (>60)
--- NOTE | 2017-09-05 12:03 | ED ---
Alyssa Neal Thomas, scribed for Ayaan Massey MD on 09/05/17 at 0912 . GI/ HPI - HPI Summary HPI Summary: The patient is a 47 year old male complaining of dark stools for the last few days. Today, he noted a single BM that was black and tarry. The patient averages one BM per day. The patient also complains of some lightheadedness. The patient denies any abdominal pain, urinary symptoms, hematuria, fevers, and chills. Past medical history includes GI bleed. Past surgical history includes renal tumor removal on 08/09/17. He is on omeprazole. - History of Current Complaint Chief Complaint: EDGIBleed Time Seen by Provider: 09/05/17 09:04 Stated Complaint: ABNORMAL STOOL Hx Obtained From: Patient Onset/Duration: Started Days Ago - onset a few days ago, Still Present, Worse Since - today Timing: Intermittent Pain Intensity: 0 Associated Signs and Symptoms: Positive: Other: - Black stools, lightheadedness ; NEGATIVE: abd pain, urinary symptoms, hematuria, fevers, chills Aggravating Factor(s): Nothing Alleviating Factor(s): Nothing - Additional Pertinent History Primary Care Physician: [id number] - Allergy/Home Medications Allergies/Adverse Reactions: Allergies Allergy/AdvReac Type Severity Reaction Status Date / Time amoxicillin Allergy Mild Rash And Verified 09/05/17 08:59 Itching ciprofloxacin Allergy Mild Hallucinati Verified 09/05/17 08:59 ons metronidazole [From Flagyl] Allergy Mild Hallucinati Verified 09/05/17 08:59 ons PMH/Surg Hx/FS Hx/Imm Hx Endocrine/Hematology History: Denies: Hx Diabetes Cardiovascular History: Reports: Hx Hypertension Denies: Hx Angina, Hx Congestive Heart Failure, Hx Coronary Artery Disease, Hx Hypercholesterolemia, Hx Myocardial Infarction, Hx Valvular Heart Disease Respiratory History: Denies: Hx Asthma, Hx Chronic Obstructive Pulmonary Disease (COPD) GI History: Reports: Other GI Disorders - Anal Fissure History: Denies: Hx Renal Disease Sensory History: Reports: Hx Contacts or Glasses Denies: Hx Hearing Aid Opthamlomology History: Reports: Hx Contacts or Glasses - Cancer History Cancer Type, Location and Year: Renal CA - Surgical History Surgery Procedure, Year, and Place: Renal tumor removal (July 2017) Infectious Disease History: No Infectious Disease History: Denies: Traveled Outside the [place] in Last 30 Days - Family History Known Family History: Positive: Cardiac Disease, Diabetes - Social History Alcohol Use: None Hx Substance Use: No Substance Use Type: Reports: None Hx Tobacco Use: Yes Smoking Status (MU): Former Smoker Type: Cigarettes Review of Systems Positive: Other - Lightheadedness. Negative: Fever, Chills Positive: Other - Black stools. Negative: Abdominal Pain Positive: no symptoms reported. Negative: hematuria All Other Systems Reviewed And Are Negative: Yes Physical Exam - Summary Physical Exam Summary: General: well-appearing, no pain distress Skin: warm, color reflects adequate perfusion, dry Head: normal Eyes: EOMI, SY ENT: normal Neck: supple, nontender Respiratory: CTA, breath sounds present Cardiovascular: RRR Abdomen: soft, nontender Rectal exam: There is no blood noted. Bowel sounds: present Musculoskeletal: normal, strength/ROM intact Neurological: normal, sensory/motor intact, A&O x3 Psychological: affect/mood appropriate Triage Information Reviewed: Yes Vital Signs On Initial Exam: Initial Vitals Temp Pulse Resp BP Pulse Ox 99.5 F 111 20 154/99 99 09/05/17 08:39 09/05/17 08:39 09/05/17 08:39 09/05/17 08:39 09/05/17 08:39 Vital Signs Reviewed: Yes Diagnostics - Vital Signs Vital Signs Temp Pulse Resp BP Pulse Ox 09/05/17 09:00 95 23 132/82 98 09/05/17 08:53 101 12 100 09/05/17 08:52 155/90 09/05/17 08:39 99.5 F 111 20 154/99 99 - Laboratory Lab Results: Lab Results 09/05/17 09/05/17 09/05/17 Range/Units 09:30 09:40 09:40 WBC (3.5-10.8) 10^3/ul RBC (4.0-5.4) 10^6/ul Hgb (14.0-18.0) g/dl Hct (42-52) % MCV (80-94) fL MCH (27-31) pg MCHC (31-36) g/dl RDW (10.5-15) % Plt Count (150-450) 10^3/ul MPV (7.4-10.4) um3 Neut % (Auto) (38-83) % Lymph % (Auto) (25-47) % [place] % (Auto) (0-7) % Eos % (Auto) (0-6) % Baso % (Auto) (0-2) % Absolute Neuts (auto) (1.5-7.7) 10^3/ul Absolute Lymphs (auto) (1.0-4.8) 10^3/ul Absolute Monos (auto) (0-0.8) 10^3/ul Absolute Eos (auto) (0-0.6) 10^3/ul Absolute Basos (auto) (0-0.2) 10^3/ul Absolute Nucleated RBC 10^3/ul Nucleated RBC % INR (Anticoag Therapy) 1.02 (0.77-1.02) APTT 31.7 (26.0-36.3) seconds Sodium (139-145) mmol/L Potassium (3.5-5.0) mmol/L Chloride (101-111) mmol/L Carbon Dioxide (22-32) mmol/L Anion Gap (2-11) mmol/L BUN (6-24) mg/dL Creatinine (0.67-1.17) mg/dL Est GFR ( Amer) (>60) Est GFR (Non-Af Amer) (>60) BUN/Creatinine Ratio (8-20) Glucose (70-100) mg/dL Calcium (8.6-10.3) mg/dL Total Bilirubin (0.2-1.0) mg/dL AST (13-39) U/L ALT (7-52) U/L Alkaline Phosphatase (34-104) U/L C-Reactive Protein (< 5.00) mg/L Total Protein (6.4-8.9) g/dL Albumin (3.2-5.2) g/dL Globulin (2-4) g/dL Albumin/Globulin Ratio (1-3) Lipase (11.0-82.0) U/L Urine Color Straw Urine Appearance Clear Urine pH 7.0 (5-9) Ur Specific [place] 1.005 L (1.010-1.030) Urine Protein Negative (Negative) Urine Ketones Negative (Negative) Urine Blood 2+ A (Negative) Urine Nitrate Negative (Negative) Urine Bilirubin Negative (Negative) Urine Urobilinogen Negative (Negative) Ur Leukocyte Esterase Negative (Negative) Urine WBC (Auto) Trace(0-5/hpf) (Absent) Urine RBC (Auto) Absent (Absent) Urine Bacteria Absent (Absent) Urine Glucose Negative (Negative) Blood Type O Negative Antibody Screen Negative 09/05/17 09/05/17 Range/Units 09:40 09:40 WBC 5.3 (3.5-10.8) 10^3/ul RBC 4.68 (4.0-5.4) 10^6/ul Hgb 12.5 L (14.0-18.0) g/dl Hct 37 L (42-52) % MCV 80 (80-94) fL MCH 27 (27-31) pg MCHC 34 (31-36) g/dl RDW 14 (10.5-15) % Plt Count 278 (150-450) 10^3/ul MPV 7.9 (7.4-10.4) um3 Neut % (Auto) 61.2 (38-83) % Lymph % (Auto) 24.3 L (25-47) % [place] % (Auto) 8.4 H (0-7) % Eos % (Auto) 4.5 (0-6) % Baso % (Auto) 1.6 (0-2) % Absolute Neuts (auto) 3.3 (1.5-7.7) 10^3/ul Absolute Lymphs (auto) 1.3 (1.0-4.8) 10^3/ul Absolute Monos (auto) 0.4 (0-0.8) 10^3/ul Absolute Eos (auto) 0.2 (0-0.6) 10^3/ul Absolute Basos (auto) 0.1 (0-0.2) 10^3/ul Absolute Nucleated RBC 0 10^3/ul Nucleated RBC % 0 INR (Anticoag Therapy) (0.77-1.02) APTT (26.0-36.3) seconds Sodium 139 (139-145) mmol/L Potassium 4.1 (3.5-5.0) mmol/L Chloride 105 (101-111) mmol/L Carbon Dioxide 29 (22-32) mmol/L Anion Gap 5 (2-11) mmol/L BUN 17 (6-24) mg/dL Creatinine 1.04 (0.67-1.17) mg/dL Est GFR ( Amer) 99.3 (>60) Est GFR (Non-Af Amer) 77.2 (>60) BUN/Creatinine Ratio 16.3 (8-20) Glucose 97 (70-100) mg/dL Calcium 9.6 (8.6-10.3) mg/dL Total Bilirubin 0.40 (0.2-1.0) mg/dL AST 12 L (13-39) U/L ALT 14 (7-52) U/L Alkaline Phosphatase 79 (34-104) U/L C-Reactive Protein 2.74 (< 5.00) mg/L Total Protein 7.4 (6.4-8.9) g/dL Albumin 4.3 (3.2-5.2) g/dL Globulin 3.1 (2-4) g/dL Albumin/Globulin Ratio 1.4 (1-3) Lipase 17 (11.0-82.0) U/L Urine Color Urine Appearance Urine pH (5-9) Ur Specific [place] (1.010-1.030) Urine Protein (Negative) Urine Ketones (Negative) Urine Blood (Negative) Urine Nitrate (Negative) Urine Bilirubin (Negative) Urine Urobilinogen (Negative) Ur Leukocyte Esterase (Negative) Urine WBC (Auto) (Absent) Urine RBC (Auto) (Absent) Urine Bacteria (Absent) Urine Glucose (Negative) Blood Type Antibody Screen Result Diagrams: 09/05/17 09:40 09/05/17 09:40 Lab Statement: Any lab studies that have been ordered have been reviewed, and results considered in the medical decision making process. - EKG 09:32 Cardiac Rate: NL EKG Rhythm: Sinus Rhythm - at [address] Segment: Normal Ectopy: None GIGU Course/Dx - Course Course Of Treatment: WELL IN ED. ORTHOSTATICS IN ED NL. DISCUSSED WITH GI, DR HERRERA. WITH ORTHOSTATICS AND VS NL WITH HGB 12.5 AND 1 STOOL PER DAY, WILL F/ U OUT PATIENT. DISCUSSED THIS WITH THE PATIENT AND HIS WHO AGREE WITH OUT PATIENT TREATMENT WITH RETURN TO ED IF WORSE. F/U GI; RETURN IF WORSE. Assessment/Plan: Medications reviewed. Allergies noted. BP noted and patient urged to follow up with primary care. - Diagnoses Provider Diagnoses: Hypertension, GI bleed Discharge - Sign-Out/Discharge Documenting (check all that apply): Discharge - Discharge Plan Condition: Stable Disposition: HOME Patient Education Materials: Gastrointestinal Bleeding (ED) Referrals: Han Clark MD [Primary Care Provider] - Baron Herrera MD [Medical Doctor] - Additional Instructions: FOLLOW UP WITH GASTROENTEROLOGY. INCREASE YOUR OMEPRAZOLE TO 40MG TWICE A DAY. RETURN TO THE EMERGENCY DEPARTMENT FOR ANY WORSENING OF YOUR CONDITION; PAIN, FEVER, BLOODY STOOLS, YOU FEEL LIKE PASSING OUT OR QUESTIONS OR CONCERNS. - Billing Disposition and Condition Condition: STABLE Disposition: HOME The documentation as recorded by the Alyssa perez Thomas accurately reflects the service I personally performed and the decisions made by me, Ayaan Massey MD.
[2017-09-05 12:14] VITALS: BP 126/85
== END 2017-09-05 12:13 | disposition home or self-care (01) ==
LOC: ED 08:37
DX: K92.2 Gastrointestinal hemorrhage, unspecified (principal); I10 Essential (primary) hypertension; R42 Dizziness and giddiness
CPT/HCPCS: 36415; 80053; 81003; 81015; 82270; 83690; 85025; 85610; 85730; 86140; 86850; 86900; 86901; 87086; 93005; 96374; 99283